=== PATIENT | female | born 1990 | race Two or more races ===

== ENCOUNTER 2023-04-12 19:26 | Emergency (ER) | payer OTHER ==
[~2023-04-12] VITALS: Ht 152.4 cm; Wt 55.3 kg
[~2023-04-12 19:26] MED LIST: ALLEGRA-D1 TAB.SR . PO; SEPTRA DS TABLE1 TAB PO
== END 2023-04-12 22:28 | disposition home or self-care (01) ==
LOC: ER 19:26
DX: M94.0 Chondrocostal junction syndrome [Tietze] (principal)

== ENCOUNTER 2023-08-30 09:25 | Outpatient (CLI) | payer OTHER | END 2023-08-30 09:42 | disposition home or self-care (01) | LOC: MRI 09:25 | DX: H81.4 Vertigo of central origin (principal); G43.911 Migraine, unspecified, intractable, with status migrainosus | CPT/HCPCS: 70551 ==